=== PATIENT | female | born 1995 | race Caucasian/White ===

== ENCOUNTER 2018-01-03 17:10 | Emergency (ER) | payer MEDICAID ==
[~2018-01-03] VITALS: Ht 160 cm; Wt 89.3 kg
[2018-01-03 17:24] VITALS: BP 115/78; Ht 160 cm; Wt 89.3 kg
== END 2018-01-03 19:47 | disposition home or self-care (01) ==
LOC: ED 17:10
DX: J06.9 Acute upper respiratory infection, unspecified (principal); J45.909 Unspecified asthma, uncomplicated
CPT/HCPCS: J7613

== ENCOUNTER 2018-04-19 15:02 | Emergency (ER) | payer MEDICAID ==
[~2018-04-19] VITALS: Ht 160 cm; Wt 95.0 kg
[2018-04-19 15:14] VITALS: BP 117/59; Ht 160 cm; Wt 95.0 kg
== END 2018-04-19 16:59 | disposition home or self-care (01) ==
LOC: ED 15:02
DX: L30.9 Dermatitis, unspecified (principal); J45.909 Unspecified asthma, uncomplicated

== ENCOUNTER 2018-04-27 18:26 | Emergency (ER) | payer MEDICAID ==
[~2018-04-27] VITALS: Ht 157.5 cm; Wt 96.6 kg
[2018-04-27 18:33] VITALS: Ht 157.5 cm; Wt 96.6 kg
[2018-04-27 18:55] VITALS: BP 118/70
== END 2018-04-27 18:55 | disposition home or self-care (01) ==
LOC: ED 18:26
DX: J06.9 Acute upper respiratory infection, unspecified (principal); J45.909 Unspecified asthma, uncomplicated

== ENCOUNTER 2018-08-20 16:56 | Emergency (ER) | payer MEDICAID ==
[~2018-08-20] VITALS: Ht 157.5 cm; Wt 91.6 kg
[2018-08-20 17:11] VITALS: Ht 157.5 cm; Wt 91.6 kg
[2018-08-20 18:02] VITALS: BP 122/62
== END 2018-08-20 18:02 | disposition home or self-care (01) ==
LOC: ED 16:56
DX: L25.9 Unspecified contact dermatitis, unspecified cause (principal)